=== PATIENT | female | born 1995 | race Caucasian/White ===

== ENCOUNTER → 2020-07-23 15:01 | Outpatient (CLI) | payer OTHER, SELFPAY ==
[2020-07-23 15:57] LABS: Add Manual Diff / Slide Review NO; Basophils Absolute Auto 100 /uL (0-100); Basophils Percent Auto 1.1 % (0-2); Eosinophils Absolute Auto 100 /uL (0-450); Eosinophils Percent Auto 1.8 % (2-4); Hematocrit 42.8 % (36-46); Hemoglobin 14.7 g/dL (12.0-16.0); Lymphocytes Absolute Auto 2100 /uL (1100-4500); Lymphocytes Percent Auto 36.9 % (25-40); Mean Corpuscular HGB Conc 34.3 % (30-36); Mean Corpuscular Hemoglobin 32.1 PG (26-34); Mean Corpuscular Volume 93.4 fL (80-100); Monocytes Absolute Auto 500 /uL (0-900); Monocytes Percent Auto 8.3 % (3-14); Neutrophils Absolute Auto 3000 /uL (1500-7000); Neutrophils Percent Auto 51.9 % (50-75); Platelet Count 223 X10^3/uL (150-400); Red Blood Cell Count 4.58 X10^6/uL (4.0-5.2); Red Cell Distribution Width 12.6 % (11.6-14.8); White Blood Cell Count 5.7 X10^3/uL (4.5-11.0)
[2020-07-23 16:48] LABS: Alanine Aminotransferase 31 IU/L (<35); Albumin 4.7 g/dL (3.5-5.0); Albumin Globulin Ratio 1.6 (1.0-2.8); Alkaline Phosphatase 51 U/L (38-126); Aspartate Aminotransferase 43 IU/L (14-36); BUN Creatinine Ratio 21.9 (6-22); Bilirubin Total 0.4 mg/dL (0.2-1.3); Blood Urea Nitrogen 16 mg/dL (7-17); Calcium 9.5 mg/dL (8.4-10.2); Carbon Dioxide 31 mmol/L (22-32); Chloride 100 mmol/L (98-107); Estimated Glomerular Filt Rate > 60.0 mL/min (>60); Glucose 88 mg/dL (70-100); HEMOLYSIS < 15 (0-50); Potassium 4.3 mmol/L (3.4-5.1); Sodium 139 mmol/L (137-145); Total Protein 7.7 g/dL (6.3-8.2)
[2020-07-23 17:15] LABS: TSH w/ Reflex to FT4 2.56 uIU/mL (0.47-4.68)
== END ==
PROVIDERS: PCP Family Medicine; Referring Provider Family Medicine; Visit Provider Family Medicine
DX: Z83.3 Family history of diabetes mellitus (principal); Z83.49 Family history of other endocrine, nutritional and metabolic diseases
CPT/HCPCS: 36415; 80053; 84443; 85025

== ENCOUNTER → 2020-08-21 08:53 | Outpatient (CLI) | payer OTHER, SELFPAY ==
[2020-08-21 10:07] LABS: Albumin 4.7 g/dL (3.5-5.0); HEMOLYSIS < 15 (0-50)
[2020-08-21 10:08] LABS: Alanine Aminotransferase 25 IU/L (<35); Albumin Globulin Ratio 1.6 (1.0-2.8); Alkaline Phosphatase 59 U/L (38-126); Aspartate Aminotransferase 31 IU/L (14-36); BUN Creatinine Ratio 20.5 (6-22); Bilirubin Total 0.6 mg/dL (0.2-1.3); Blood Urea Nitrogen 15 mg/dL (7-17); Calcium 9.6 mg/dL (8.4-10.2); Carbon Dioxide 31 mmol/L (22-32); Chloride 100 mmol/L (98-107); Estimated Glomerular Filt Rate > 60.0 mL/min (>60); Glucose 58 mg/dL (70-100); Potassium 4.2 mmol/L (3.4-5.1); Sodium 138 mmol/L (137-145); Total Protein 7.7 g/dL (6.3-8.2)
[2020-08-21 10:36] LABS: TSH w/ Reflex to FT4 2.99 uIU/mL (0.47-4.68)
== END ==
PROVIDERS: PCP Family Medicine; Referring Provider Family Medicine; Visit Provider Family Medicine
DX: R74.02 Elevation of levels of lactic acid dehydrogenase [LDH] (principal)
CPT/HCPCS: 36415; 80053; 84443

== ENCOUNTER → 2020-09-28 10:06 | Outpatient (CLI) | payer OTHER, SELFPAY ==
[2020-09-28 12:41] LABS: TSH w/ Reflex to FT4 2.63 uIU/mL (0.47-4.68)
[2020-10-02 14:20] LABS: Free T4, Direct Thyroxine 1.49 ng/dL (0.78-2.19)
== END ==
PROVIDERS: Obstetrics & Gynecology; PCP Family Medicine; Referring Provider Family Medicine; Visit Provider Family Medicine
DX: E03.9 Hypothyroidism, unspecified (principal)
CPT/HCPCS: 36415; 84439; 84443

== ENCOUNTER → 2020-10-26 09:31 | Outpatient (CLI) | payer OTHER, SELFPAY ==
[2020-10-26 10:55] LABS: Free T4, Direct Thyroxine 1.59 ng/dL (0.78-2.19)
[2020-10-26 11:09] LABS: Thyroid Stimulating Hormone 0.126 uIU/mL (0.47-4.68)
== END ==
PROVIDERS: PCP Family Medicine; Referring Provider Obstetrics & Gynecology; Visit Provider Obstetrics & Gynecology
DX: E03.9 Hypothyroidism, unspecified (principal)
CPT/HCPCS: 36415; 84439; 84443

== ENCOUNTER → 2020-11-06 14:46 | Outpatient (CLI) | payer OTHER, SELFPAY ==
--- NOTE | 2020-11-06 14:47 | DI.US.S_ITS ---
PROCEDURE: US THYROID INDICATIONS: hypothyroid TECHNIQUE: Real-time scanning was performed of the thyroid gland, with image documentation. COMPARISON: None. FINDINGS: Right: Thyroid lobe measures 5.7 x 1.1 x 1.5 cm, and is homogeneous in echotexture. Left: Thyroid lobe measures 5.0 x 0.8 x 1.4 cm, and is homogenous in echotexture. Isthmus: 3 mm thick. Nodule number: 1 Location: Right interpolar region Size: 2 x 1 x 2 mm. Composition: Cystic Echogenicity: Anechoic Shape: wider than tall. Margins: Smooth Echogenic foci: Punctate Total points: 3 ACR TI-RADS category: Mildly suspicious Nodule number: 2 Location: Right inferior pole Size: 2 x 1 x 2 mm. Composition: Cystic Echogenicity: Anechoic Shape: Smooth Margins: Punctate Echogenic foci: 3 Total points: 3 ACR TI-RADS category: Mildly suspicious Nodule number: 3 Location: Left upper pole Size: 3 x 1 x 2 mm. Composition: Cystic Echogenicity: Anechoic Shape: wider than tall. Margins: Smooth Echogenic foci: Punctate Total points: 3 ACR TI-RADS category: Mildly suspicious Nodule number: 4 Location: Left interpolar lobe Size: 5 x 3 x 4 mm. Composition: Cystic Echogenicity: Anechoic Shape: wider than tall. Margins: Smooth Echogenic foci: Punctate Total points: 3 ACR TI-RADS category: Mildly suspicious IMPRESSION: Bilateral sub 5 mm thyroid cysts, no further follow-up is necessary by consensus guidelines below. ACR TI-RADS definitions and recommendations: TI-RADS 1 (benign): 0 points. FNA not needed. TI-RADS 2 (not suspicious): 2 points. FNA not needed. TI-RADS 3 (mildly suspicious): 3 points. * FNA if 2.5 cm or larger, follow up if 1.5 cm or larger (at 1, 3, and 5 years). TI-RADS 4 (moderately suspicious): 4-6 points. * FNA if 1.5 cm or larger, follow up if 1 cm or larger (at 1, 2, 3, and 5 years). TI-RADS 5 (highly suspicious): 7 points or more. * FNA if 1 cm or larger, follow up if 0.5 cm or larger (every year for 5 years). Dictated by: Eyal Briceno M.D. on 11/06/2020 at 17:39 Approved by: Eyal Briceno M.D. on 11/06/2020 at 17:42
== END ==
PROVIDERS: PCP Family Medicine; Referring Provider Family Medicine; Visit Provider Obstetrics & Gynecology
DX: E03.9 Hypothyroidism, unspecified (principal); E04.9 Nontoxic goiter, unspecified; Z83.49 Family history of other endocrine, nutritional and metabolic diseases
CPT/HCPCS: 76536

== ENCOUNTER → 2020-11-29 07:55 | Outpatient (CLI) | payer OTHER, SELFPAY ==
[2020-11-29] MEDS: COVID-19 VACC #1, MRNA(MOD) 100 MCG/0.5 ML VIAL IM (08:02)
== END ==
PROVIDERS: PCP Family Medicine; Visit Provider Internal Medicine
DX: Z23 Encounter for immunization (principal)
CPT/HCPCS: 0011A; 91301

== ENCOUNTER → 2020-12-27 08:03 | Outpatient (CLI) | payer OTHER, SELFPAY ==
[2020-12-27] MEDS: COVID-19 VACC #2, MRNA(MOD) 100 MCG/0.5 ML VIAL IM (08:06)
== END ==
PROVIDERS: PCP Family Medicine; Visit Provider Internal Medicine
DX: Z23 Encounter for immunization (principal)
CPT/HCPCS: 0012A; 91301

== ENCOUNTER → 2021-01-31 12:48 | Outpatient (CLI) | payer OTHER, SELFPAY | PROVIDERS: PCP Family Medicine; Referring Provider Obstetrics & Gynecology; Visit Provider Obstetrics & Gynecology | DX: Z32.01 Encounter for pregnancy test, result positive (principal) | CPT/HCPCS: 36415; 84702 ==

== ENCOUNTER → 2021-02-03 08:06 | Outpatient (CLI) | payer OTHER, SELFPAY ==
[2021-02-03 09:35] LABS: HCG Quantitative /Beta subunit 537.6 mIU/mL
== END ==
PROVIDERS: PCP Family Medicine; Referring Provider Obstetrics & Gynecology; Visit Provider Obstetrics & Gynecology
DX: Z34.90 Encounter for supervision of normal pregnancy, unspecified, unspecified trimester (principal)
CPT/HCPCS: 36415; 84702

== ENCOUNTER → 2021-02-12 12:06 | Outpatient (CLI) | payer OTHER, SELFPAY ==
[2021-02-12 13:05] LABS: Add Manual Diff / Slide Review NO; Basophils Absolute Auto 100 /uL (0-100); Basophils Percent Auto 0.9 % (0-2); Eosinophils Absolute Auto 100 /uL (0-450); Hematocrit 42.1 % (36-46); Hemoglobin 14.7 g/dL (12.0-16.0); Lymphocytes Absolute Auto 2300 /uL (1100-4500); Lymphocytes Percent Auto 32.6 % (25-40); Mean Corpuscular HGB Conc 34.9 % (30-36); Mean Corpuscular Volume 91.5 fL (80-100); Monocytes Absolute Auto 600 /uL (0-900); Monocytes Percent Auto 8.6 % (3-14); Neutrophils Absolute Auto 3900 /uL (1500-7000); Neutrophils Percent Auto 55.9 % (50-75); Platelet Count 220 X10^3/uL (150-400); Red Cell Distribution Width 12.7 % (11.6-14.8); White Blood Cell Count 7.1 X10^3/uL (4.5-11.0)
[2021-02-12 16:05] LABS: HIV 1 & 2 Ab/Ag 4th Gen Combo NEGATIVE (NEGATIVE); Hep C Virus Ab w/Reflex Quant NEGATIVE s/c (NEGATIVE); Hepatitis B Surface Antigen NEGATIVE s/c (NEGATIVE); Rubella Antibody IgG 88.9 IU/mL (>15)
[2021-02-12 16:17] LABS: Free T4, Direct Thyroxine 1.45 ng/dL (0.78-2.19)
[2021-02-12 16:28] LABS: Appearance Urine UA SL CLOUDY; Bilirubin Urine UA NEGATIVE (NEGATIVE); Color Urine UA YELLOW; Glucose Urine UA NEGATIVE (Negative); Ketones Urine UA NEGATIVE (NEGATIVE); Leukocyte Esterase Urine UA 2+ (NEGATIVE); Nitrite Urine UA NEGATIVE (Negative); Occult Blood Urine UA NEGATIVE (Negative); Protein Urine UA NEGATIVE (Negative); Urobilinogen Urine UA 0.2 E.U./dL (0.2)
[2021-02-12 16:32] LABS: Thyroid Stimulating Hormone 0.059 uIU/mL (0.47-4.68)
[2021-02-12 16:51] LABS: RBC Urine None Seen (0-5/HPF)
[2021-02-12 16:56] LABS: Amorphous Sediment Urine 1+; Bacteria Urine Moderate (10-30); Squamous Epithelial Cell Urine 5-10 /HPF (0-5/HPF); WBC Urine 5-10/HPF (0-5/HPF)
[2021-02-13 07:56] LABS: RPR Screen Non Reactive (Non Reactive)
[2021-02-13 11:19] LABS: Varicella IgG Antibody >4000 index (Immune >165)
== END ==
PROVIDERS: PCP Family Medicine; Referring Provider Obstetrics & Gynecology; Visit Provider Obstetrics & Gynecology
DX: Z34.81 Encounter for supervision of other normal pregnancy, first trimester (principal)
CPT/HCPCS: 36415; 80055; 81003; 81015; 84439; 84443; 86787; 86803; 86850; 86900; 86901; 87086; 87389

== ENCOUNTER → 2021-03-26 12:56 | Outpatient (CLI) | payer OTHER, SELFPAY ==
[2021-03-26 15:40] LABS: Free T4, Direct Thyroxine 1.14 ng/dL (0.78-2.19)
[2021-03-26 15:54] LABS: Thyroid Stimulating Hormone 0.705 uIU/mL (0.47-4.68)
== END ==
PROVIDERS: PCP Family Medicine; Referring Provider Obstetrics & Gynecology; Visit Provider Obstetrics & Gynecology
DX: E03.9 Hypothyroidism, unspecified (principal); Z34.90 Encounter for supervision of normal pregnancy, unspecified, unspecified trimester
CPT/HCPCS: 36415; 84439; 84443

== ENCOUNTER → 2021-04-08 14:15 | Outpatient (CLI) | payer OTHER, SELFPAY ==
[2021-04-08 21:51] LABS: Urine N gonorrhoeae NOT DETECTED
[2021-04-08 22:19] LABS: Urine Chlamydia NOT DETECTED
== END ==
PROVIDERS: PCP Family Medicine; Visit Provider Obstetrics & Gynecology
DX: Z34.82 Encounter for supervision of other normal pregnancy, second trimester (principal); Z3A.13 13 weeks gestation of pregnancy
CPT/HCPCS: 87491; 87591

== ENCOUNTER → 2021-04-29 15:33 | Outpatient (CLI) | payer OTHER, SELFPAY ==
[2021-04-29 17:01] LABS: Free T4, Direct Thyroxine 1.02 ng/dL (0.78-2.19)
[2021-04-29 17:15] LABS: Thyroid Stimulating Hormone 1.56 uIU/mL (0.47-4.68)
[2021-05-01 20:36] LABS: Estriol, Free 1.21 ng/mL (.); Inhibin A, Dimeric 96.33 pg/mL (.); Inhibin A, MoM 0.61 (.); Maternal Ethnicity Caucasian (.); Maternal Weight 146 lbs (.); Number of Fetuses No (.); OSBR Risk 1 IN 10000 (.); Results Report (.); Test Results *Screen Negative* (.); hCG, MoM 0.68 (.); hCG, Serum 24136 mIU/mL (.)
== END ==
PROVIDERS: PCP Family Medicine; Referring Provider Obstetrics & Gynecology; Visit Provider Obstetrics & Gynecology
DX: Z34.82 Encounter for supervision of other normal pregnancy, second trimester (principal); Z3A.16 16 weeks gestation of pregnancy
CPT/HCPCS: 36415; 82105; 82677; 84439; 84443; 84702; 86336

== ENCOUNTER → 2021-05-26 12:56 | Outpatient (CLI) | payer OTHER, SELFPAY ==
--- NOTE | 2021-05-26 12:57 | DI.US.S_ITS ---
PROCEDURE: US OB >= 14 WEEKS FETUS INDICATIONS: ANATOMY OUTSIDE/PRIOR DATING DATA: Last menstrual period (LMP): 01/02/2021. LMP-based estimated date of delivery (SEVERO): - . First dating scan (date and location): 03/10/2021 . Estimated date of delivery (SEVERO) from first dating scan: 10/09/2021 . TECHNIQUE: Real-time scanning was performed of the fetus, with image documentation and biometric measurements. Endovaginal scanning: No COMPARISON: [facility], , OB >= 14 WEEKS FETUS, 04/29/2021, 15:29. FINDINGS: General: A single living intrauterine gestation is present. Presentation: Reach. Placenta: Placental position is left posterior , without previa. Amniotic fluid index: 15.2 cm, normal range is 5-24 cm. heart rate: 143 beats per minute. Maternal cervical canal: 5.2 cm long. Normal lower limit is 2.5 cm. biometrics: Biparietal diameter: 20 weeks 1 day Head circumference: 20 weeks 1 day Abdominal circumference: 21 weeks 5 days Femur length: 19 weeks 4 days Estimated gestational age from initial scan: 20 weeks 4 days Composite gestational age from present scan: 20 weeks 3 days Estimated weight and percentile: 360 g; 58th percentile Measurement variability for biometric dating: +/- 7 days from 14 weeks to 15 weeks 6 days gestation, +/- 10 days from 16 weeks to 21 weeks 6 days gestation, +/- 2 weeks from 22 weeks to 27 weeks 6 days gestation, +/- 3 weeks for 28 weeks gestation or later. weight reference: 4500 g or EFW >90/95% is considered macrosomia or large for gestational age. EFW <10% is small for gestational age. EFW 5% or less is considered intra-uterine growth restriction. Anatomic survey: Neuro: Ventricles are non-dilated at less than 10 mm. Cisterna magna is normal at 3-11 mm. Cerebellum is normal in size and morphology. Nuchal skin fold: Normal at less than 6 mm between 14-21 weeks gestational age. Face: Nose and lips, facial profile are normal. Spine: No evidence for spina bifida. Heart: 4-chambered heart is present, with normal ventricular outflow tracts. Mildly prominent chordae tendineae. Diaphragm: Diaphragm is intact. Stomach: Left-sided stomach is present. Kidneys: No hydronephrosis. Normal is less than 5 mm in 2nd trimester, less than 7 mm in 3rd trimester. Cord: 3-vessel cord has orthotopic insertion. Bladder: Normal in size. Extremities: All 4 extremities identified. IMPRESSION: 1. Normal interval growth. 2. Normal anatomic survey. Dictated by: Fernando MORRIS Interpreted: Erwin Merchant MD on 05/26/2021 at 15:01 Transcribed by: SETH on 05/26/2021 at 15:03 Approved by: Erwin Merchant M.D. on 05/26/2021 at 17:16
--- NOTE | 2021-05-26 12:57 | DI.US.S_ITS ---
PROCEDURE: US THYROID INDICATIONS: THYROID NODULES TECHNIQUE: Real-time scanning was performed of the thyroid gland, with image documentation. COMPARISON: [facility], US, US THYROID, 11/06/2020, 15:06. FINDINGS: Right: Thyroid lobe measures 5.6 x 1.4 x 1.0 cm, and is homogeneous in echotexture. Subcentimeter colloid cyst. Left: Thyroid lobe measures 5.6 x 1.4 x 0.8 cm, and is homogenous in echotexture. Isthmus: 1.9 mm thick. IMPRESSION: Subcentimeter right colloid cyst redemonstrated. Dictated by: Fernando Proctor [facility] Interpreted: Erwin Merchant MD on 05/26/2021 at 14:57 Transcribed by: SETH on 05/26/2021 at 15:00 Approved by: Erwin Merchant M.D. on 05/26/2021 at 15:02
== END ==
PROVIDERS: PCP Family Medicine; Referring Provider Specialist; Visit Provider Specialist
DX: Z36.89 Encounter for other specified antenatal screening (principal); Z3A.20 20 weeks gestation of pregnancy; O99.282 Endocrine, nutritional and metabolic diseases complicating pregnancy, second trimester; E04.1 Nontoxic single thyroid nodule
CPT/HCPCS: 76536; 76811

== ENCOUNTER → 2021-05-29 13:34 | Outpatient (CLI) | payer OTHER, SELFPAY ==
[2021-05-29 15:05] LABS: Free T4, Direct Thyroxine 1.18 ng/dL (0.78-2.19)
[2021-05-29 15:19] LABS: Thyroid Stimulating Hormone 0.218 uIU/mL (0.47-4.68)
== END ==
PROVIDERS: PCP Family Medicine; Referring Provider Obstetrics & Gynecology; Visit Provider Obstetrics & Gynecology
DX: E03.9 Hypothyroidism, unspecified (principal); Z34.90 Encounter for supervision of normal pregnancy, unspecified, unspecified trimester; Z34.82 Encounter for supervision of other normal pregnancy, second trimester
CPT/HCPCS: 36415; 84439; 84443; 86850; 86900; 86901

== ENCOUNTER → 2021-06-24 16:37 | Outpatient (CLI) | payer OTHER, SELFPAY ==
[2021-06-24 18:04] LABS: Hematocrit 36.5 % (36-46); Hemoglobin 12.6 g/dL (12.0-16.0)
[2021-06-24 18:18] LABS: GTT (PREG) 1 Hour PP 50gm Dose 125 mg/dL (76-139)
== END ==
PROVIDERS: PCP Family Medicine; Referring Provider Obstetrics & Gynecology; Visit Provider Obstetrics & Gynecology
DX: Z34.82 Encounter for supervision of other normal pregnancy, second trimester (principal); Z3A.26 26 weeks gestation of pregnancy
CPT/HCPCS: 36415; 82950; 85014; 85018; 86850

== ENCOUNTER → 2021-07-01 08:55 | Outpatient (CLI) | payer OTHER, SELFPAY ==
[2021-07-01 09:30] LABS: COVID19 -Nasal RAPID Negative (Negative)
== END ==
PROVIDERS: PCP Family Medicine; Referring Provider Physician Assistant; Visit Provider Physician Assistant
DX: Z20.822 Contact with and (suspected) exposure to COVID-19 (principal); J02.9 Acute pharyngitis, unspecified; R09.81 Nasal congestion; R51.9 Headache, unspecified
CPT/HCPCS: 87070; 87635

== ENCOUNTER → 2021-07-25 13:32 | Outpatient (CLI) | payer OTHER, SELFPAY ==
[2021-07-25 16:06] LABS: Free T4, Direct Thyroxine 1.18 ng/dL (0.78-2.19)
[2021-07-25 16:20] LABS: Thyroid Stimulating Hormone 0.477 uIU/mL (0.47-4.68)
== END ==
PROVIDERS: PCP Family Medicine; Referring Provider Obstetrics & Gynecology; Visit Provider Obstetrics & Gynecology
DX: E03.9 Hypothyroidism, unspecified (principal); Z34.90 Encounter for supervision of normal pregnancy, unspecified, unspecified trimester
CPT/HCPCS: 36415; 84439; 84443

== ENCOUNTER → 2021-08-20 | Outpatient (CLI) | payer OTHER, SELFPAY | PROVIDERS: PCP Family Medicine; Referring Provider Internal Medicine; Visit Provider Internal Medicine | DX: Z23 Encounter for immunization (principal) | CPT/HCPCS: 90471; 90686 ==

== ENCOUNTER → 2021-09-03 10:26 | Outpatient (CLI) | payer OTHER, SELFPAY ==
[2021-09-03 12:45] LABS: Thyroid Stimulating Hormone 1.39 uIU/mL (0.47-4.68)
== END ==
PROVIDERS: PCP Family Medicine; Referring Provider Obstetrics & Gynecology; Visit Provider Obstetrics & Gynecology
DX: E03.9 Hypothyroidism, unspecified (principal)
CPT/HCPCS: 36415; 84439; 84443

== ENCOUNTER → 2021-09-18 14:20 | Outpatient (CLI) | payer OTHER, SELFPAY ==
[2021-09-19 19:35] LABS: Strep Grp B PCR NEG for Grp B Strep
== END ==
PROVIDERS: PCP Family Medicine; Referring Provider Obstetrics & Gynecology; Visit Provider Obstetrics & Gynecology
DX: Z34.83 Encounter for supervision of other normal pregnancy, third trimester (principal); Z3A.37 37 weeks gestation of pregnancy
CPT/HCPCS: 87653

== ENCOUNTER 2021-10-10 01:43 | Outpatient (CLI) | payer OTHER, SELFPAY ==
[2021-10-10] MEDS: hydrOXYzine 50 MG/ML INJ IM (03:17)
[2021-10-10] MEDS: MORPHINE 10 MG/ML INJ IM (03:18)
--- NOTE | 2021-10-10 18:39 | PM.OBTRLD ---
Visit Information Visit Information Date of evaluation: 10/10/21 Primary OB Provider: Yissel Brower On-call OB Provider: Do Li Reason for Evaluation: Yes rule out labor Comments/Additional reasons for admission: Patient with increasing frequency and intensity of contractions. Vital Signs Vital Signs: 127/77, VSS PFSH Medical History Concussion Depression Dysmenorrhea Family history of diabetes mellitus Family history of hypothyroidism Hematoma of perineum in female (~04/2018) Hyperlipidemia depression (spontaneous vaginal delivery) (~05/05/18) Surgical History History of third molar tooth extraction Lymph node abscess (~1994) Family History Father Hypertension Heart disease Chronic a-fib Hyperlipidemia Nervously anxious Mother Hypothyroidism Ovarian cyst Brother Healthy adult Grandfather Cancer Lung cancer Alcohol addiction Heavy smoker Grandmother Cancer Lung cancer Breast cancer Heavy smoker Alcohol addiction Grandfather Heart disease Hyperlipidemia Hypertension Atrial fibrillation H/O heart bypass surgery Grandmother Osteoporosis Arthritis Sister Infertility Hypothyroidism Type 1 diabetes Gestational diabetes Migraine PCOS (polycystic ovarian syndrome) Family/Other Hypoplastic left heart Social History marital status: number of children: 1 household members: spouse and children lives independently: Yes pets and animals: No education level: college 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 suzy/christianity: Roman Catholic special suzy needs: No Smoking Status: Never smoker second hand exposure: No alcohol intake: former (pre- : rare/occasional) substance use type: does not use Evaluation Evaluation Baseline heart rate: 125 Variability: Moderate (11-25) monitor accelerations: Present Monitor Decelerations: Early (sporadic) Contraction Frequency (minutes): 3 Category of Tracing: Reactive Status: Category l Cervical dilation (cm): 2 Cervical effacement (%): 80 station: 0 Diagnosis, Plan/Disposition Plan/Disposition Plan: Home with scheduled precautions- offered ambulation and re exam. OB Disposition: home
== END 2021-10-10 03:28 | disposition home or self-care (01) ==
LOC: OB 10-13 11:14
PROVIDERS: PCP Family Medicine; Referring Provider Obstetrics & Gynecology; Visit Provider Obstetrics & Gynecology
DX: O48.0 Post-term pregnancy (principal); Z3A.40 40 weeks gestation of pregnancy
CPT/HCPCS: 59025; 96372; G0378; G0379; J2270; J3410

== ENCOUNTER 2021-10-10 19:46 | Inpatient (IN) | payer OTHER, SELFPAY ==
[2021-10-10 21:26] VITALS: BP 123/77
[2021-10-10 21:26] LABS: Add Manual Diff / Slide Review NO; Basophils Absolute Auto 0 /uL (0-100); Basophils Percent Auto 0.5 % (0-2); Eosinophils Absolute Auto 100 /uL (0-450); Eosinophils Percent Auto 1.3 % (2-4); Hematocrit 30.5 % (36-46); Hemoglobin 10.7 g/dL (12.0-16.0); Lymphocytes Absolute Auto 1500 /uL (1100-4500); Lymphocytes Percent Auto 25.7 % (25-40); Mean Corpuscular Hemoglobin 30.9 PG (26-34); Mean Corpuscular Volume 88.3 fL (80-100); Monocytes Absolute Auto 800 /uL (0-900); Monocytes Percent Auto 13.1 % (3-14); Neutrophils Absolute Auto 3500 /uL (1500-7000); Neutrophils Percent Auto 59.4 % (50-75); Platelet Count 170 X10^3/uL (150-400); Red Blood Cell Count 3.45 X10^6/uL (4.0-5.2); Red Cell Distribution Width 14.1 % (11.6-14.8)
[2021-10-10 21:35] LABS: COVID19 -Nasal RAPID Negative (Negative)
--- NOTE | 2021-10-10 22:54 | PM.OBHP.IH.1 ---
OB HPI Date/Time Date of admission: 10/10/21 Date Patient Seen: 10/10/21 Time Patient Seen: 22:56 History of Present Condition Chief complaint: SEVERO Calculator Estimated Delivery Date Method Current WG Current Estimate 10/09/21 LMP (Certain) 40w 1d Other Estimates 10/09/21 Ultrasound #1 40w 1d Estimated Gestational Age (weeks): 40w1d : 2 Para: 1 Narrative: 26yo at 40w1d who presented with regular painful contractions. Pt with contractions throughout the day, increasing in frequency and intensity this evening. No LOF or vaginal bleeding. She is feeling her baby move regularly. Her was complicated by hypothyroidism on Levothyroxine. care: good care, initiated at week # (8) and pounds weight gain (40) Dating criteria OB: LMP confirmed by 1st trimester US Ultrasounds: normal 1st trimester US and normal mid trimester US Obstetrical complications: none Medical complications OB: other (hypothyroidism) Preadmission Labs Last OB Lab Results: Blood Type A Negative 10/10/21 21:00 10/10/21 Antibody Screen Negative 10/10/21 21:00 10/10/21 Hematocrit 30.5 % (36-46) L 10/10/21 21:00 10/10/21 Hemoglobin 10.7 g/dL (12.0-16.0) L 10/10/21 21:00 10/10/21 Hepatitis B Surface Antigen Negative s/c (NEGATIVE) 02/12/21 12:22 02/12/21 Hepatitis C Antibody Negative s/c (NEGATIVE) 02/12/21 12:22 02/12/21 Rubella Antibody 88.9 IU/mL (>15) 02/12/21 12:22 02/12/21 Varicella-Zoster IgG Antibody >4000 index (Immune >165) 02/12/21 12:22 02/12/21 Glucose 1 Hour 125 mg/dL (76-139) 06/24/21 17:50 06/24/21 Group B Streptococcus (PCR) Neg for grp b strep 09/18/21 14:20 09/18/21 -: Chlamydia screen: negative, Gonorrhea screen: negative and Urine: negative -: PAP smear: Normal Genetic Screens: Quad screen: Normal External Labs -: Urine: negative Prior (ies) Past Pregnancies Del. Date GA/Weeks Labor Lgth Wt Sex Route Outcome Anesthesia Place Delv Breastfeed Preg Comp Name 05/05/18 40.5 15 8 lb 9 oz Male vaginal live - full term epidural [place] ([place]) 14 months : tongue-tied ian Sanchez Delivery Date: 05/05/18 Last Updated by: Leonela Fontana R.N. *Slow leak PROM : ? 48-72 hours prior to delivery. *Pitocin-enhanced labor. *Tear with repair : hematoma developed PP. *PPD diagnosed 3-4 weeks PP : no Rx but had Therapy. Evaluation Evaluation Baseline heart rate: 140 Variability: Moderate (11-25) monitor accelerations: Present Monitor Decelerations: Absent Contraction Frequency (minutes): 2 Status: Category l Dilation (cm): 9.5 Effacement (%): 100 station: 0 Comments: After informed consent, AROM performed with production of clear fluid. [facility] Medical History Concussion Depression Dysmenorrhea Family history of diabetes mellitus Family history of hypothyroidism Hematoma of perineum in female (~04/2018) Hyperlipidemia depression (spontaneous vaginal delivery) (~05/05/18) Surgical History History of third molar tooth extraction Lymph node abscess (~1994) Family History Father Hypertension Heart disease Chronic a-fib Hyperlipidemia Nervously anxious Mother Hypothyroidism Ovarian cyst Brother Healthy adult Grandfather Cancer Lung cancer Alcohol addiction Heavy smoker Grandmother Cancer Lung cancer Breast cancer Heavy smoker Alcohol addiction Grandfather Heart disease Hyperlipidemia Hypertension Atrial fibrillation H/O heart bypass surgery Grandmother Osteoporosis Arthritis Sister Infertility Hypothyroidism Type 1 diabetes Gestational diabetes Migraine PCOS (polycystic ovarian syndrome) Family/Other Hypoplastic left heart Social History marital status: number of children: 1 household members: spouse and children lives independently: Yes pets and animals: No education level: college 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 suzy/gnosticism: Yazdanism special suzy needs: No Smoking Status: Never smoker second hand exposure: No alcohol intake: former (pre- : rare/occasional) substance use type: does not use Meds Home Medications and Allergies Home Medications Medication Instructions Recorded Confirmed Type prenat.vits,chana,rri-xyhr-nxoqn 1 tab PO DAILY 11/20/20 10/10/21 History Double Electric Breast Pump #1 ea 07/07/21 10/10/21 Rx levothyroxine 150 mcg tablet See Rx Instructions .ROUTE 09/29/21 10/10/21 Rx .COMPLEX #30 tab Allergies Allergy/AdvReac Type Severity Reaction Status Date / Time Penicillins AdvReac Intermediate Unknown - Verified 10/08/21 15:24 since she was a baby OB Exam Narrative Exam Narrative: Gen: uncomfortable with contractions, laying in bed CV: RRR, no murmurs Resp: clear to auscultation bilaterally Abd: soft, nontender, gravid Ext: no edema Objective Labs Result Diagrams: 10/10/21 21:00 Labs: Laboratory Results - last 24 hr 10/10/21 10/10/21 10/10/21 20:45 21:00 21:00 WBC 6.0 RBC 3.45 L Hgb 10.7 L Hct 30.5 L MCV 88.3 MCH 30.9 MCHC 35.0 RDW 14.1 Plt Count 170 Neut % (Auto) 59.4 Lymph % (Auto) 25.7 Bates % (Auto) 13.1 Eos % (Auto) 1.3 L Baso % (Auto) 0.5 Neut # (Auto) 3500 Lymph # (Auto) 1500 Bates # (Auto) 800 Eos # (Auto) 100 Baso # (Auto) 0 SARS-CoV-2 (PCR) Negative Blood Type A Negative Antibody Screen Negative Assessment and Plan Assessment and Plan Assessment and Plan narrative: 26yo at 40w1d here in active labor. GBS negative, Rh negative. complicated by hypothyroidism on Levothyroxine. AROM with clear fluid. - Expectant management, anticipate - FHT reassuring - GBS negative, no prophylaxis indicated - Desires natural methods for pain control
--- NOTE | 2021-10-11 00:32 | PM.OBPRVD ---
Labor & Delivery Delivery date: 10/11/21 Intrapartal Events: None Cervical ripening method: none Induction method: none Delivery augmentation: rupture of membranes Delivery monitor: external FHT Route of delivery: Episiotomy description: None L&D Laceration Description: Perineal - 2nd Degree Delivery repair: chromic Estimated blood loss (mL): 100 Anesthesia Type: None Complications: None Narrative: PROCEDURE: at 40w1d presented in active labor and was admitted to Labor and Delivery. The patient progressed through the 1st stage over 5.5 hours. Pain was controlled with natural methods. AROM was performed with production of clear fluid. The patient progressed through the 2nd stage over 1 hour and delivered a viable female with APGARs 9/9 at 00:03 via without complications. The cord was clamped and cut after it stopped pulsating. The perineum and vagina were inspected with 2nd degree perineal laceration repaired with 3-O Chromic in the usual fashion. PREPROCEDURE DIAGNOSIS: Intrauterine at 40w2d Hypothyroidism GBS negative RH negative POSTPROCEDURE DIAGNOSIS: Intrauterine at 40w2d, delivered Same as preprocedure [place] Baby 1: Infant gender: Female Presentation: vertex Position: Right Occiput Anterior Placenta delivery description: Spontaneous Cord Vessel Description: 3 Vessels score (1 min): 9 score (5 min): 9 weight: 8 lb 12.602 oz Plan for aftercare: Routine care (send cord blood to confirm Rh status)
[2021-10-11] MEDS: ACETAMINOPHEN 325 MG TABLET 650 MG PO ×4 (01:14→19:43)
[2021-10-11] MEDS: IBUPROFEN 600 MG TABLET PO ×4 (01:14→19:44)
[2021-10-11] MEDS: LEVOTHYROXINE 150 MCG TABLET PO (07:19)
[2021-10-11] MEDS: DOCUSATE 100 MG CAPSULE PO (09:00)
[2021-10-11] MEDS: FERROUS SULFATE 325 MG TABLET PO (09:00)
[2021-10-11] MEDS: PRENATAL VIT,CALC/IRON/FOLIC 1 TABLET 1 TAB PO (09:00)
--- NOTE | 2021-10-11 10:17 | P.DS_ITS ---
Discharge Providers Provider Date of admission: 10/10/21 19:46 Discharge Date: 10/11/21 Primary care physician: Jeniffer Gilliam DO Consults: 10/12/21 00:31 Consult to [place] Caller Routine Comment: Discharge provider: Valentina Wang MD Summary Hospital Course Date Patient Seen: 10/11/21 Time Patient Seen: 09:30 Diagnoses: 40w2d gestation Rh negative GBS negative Hypothyroidism Spontaneous vaginal delivery Hospital Course: The pt presented in active labor. She progressed to complete using natural methods for pain control, and had a spontaneous vaginal delivery of a viable baby girl on 10/11/21. A small 2nd degree perineal laceration was then repaired. The pt tolerated delivery well. , there were no complications. At the time of discharge she was voiding, ambulating, and passing flatus without difficulty. Her lochia was decreasing appropriately. She was with good latch. Her pain as well controlled. She will f/u in clinic in 6 weeks for check. She plans on natural family planning for contraception. Peripartum Data Infant Delivery Method: Natural Vaginal Laceration Description: Perineal - 2nd Degree Episiotomy description: None Procedures: Spontaneous vaginal delivery complications: none 1: Gender: Female Disposition of : home Discharge Diagnosis (1) (spontaneous vaginal delivery): Status: Acute (2) Acquired hypothyroidism: Status: Acute Status at Discharge Cognitive/behavioral status at discharge: oriented Functional status at discharge: independent ambulation Overall status at discharge: patient is progressing back to baseline Time Spent with Patient Time attestation: Total time spent providing and/or coordinating discharge services: Objective Labs Result Diagrams: 10/10/21 21:00 Labs: Laboratory Results - last 24 hr 10/10/21 10/10/21 10/10/21 20:45 21:00 21:00 WBC 6.0 RBC 3.45 L Hgb 10.7 L Hct 30.5 L MCV 88.3 MCH 30.9 MCHC 35.0 RDW 14.1 Plt Count 170 Neut % (Auto) 59.4 Lymph % (Auto) 25.7 Porter % (Auto) 13.1 Eos % (Auto) 1.3 L Baso % (Auto) 0.5 Neut # (Auto) 3500 Lymph # (Auto) 1500 Porter # (Auto) 800 Eos # (Auto) 100 Baso # (Auto) 0 SARS-CoV-2 (PCR) Negative Blood Type A Negative Antibody Screen Negative Exam Narrative Exam Narrative: Gen: NAD, sitting comfortably in bed, appears well CV: RRR, no murmurs Resp: clear to auscultation bilaterally Abd: soft, appropriately tender, fundus firm and below the umbilicus, nondistended Ext: no edema Discharge Plan Discharge Plan Patient Disposition: Home Discharge orders & Medications Prescriptions: New acetaminophen 325 mg Tablet 650 mg PO Q6HR PRN (Reason: Pain, Mild (1-3)) Qty: 30 0RF ferrous sulfate 325 mg (65 mg iron) Tablet 325 mg PO DAILY Qty: 30 0RF docusate sodium 100 mg Capsule 100 mg PO DAILY Qty: 30 0RF ibuprofen 600 mg Tablet 600 mg PO Q6HR PRN (Reason: Pain, Mild (1-3)) Qty: 30 0RF Continued (DME) Double Electric Breast Pump See Rx Instructions .Route .MEDSUPPLY Qty: 1 0RF Rx Instructions: Double electric pump and supplies. SEVERO: 10/09/21. 27 weeks on 07/10/21 levothyroxine 150 mcg tablet See Rx Instructions .ROUTE .COMPLEX Qty: 30 2RF Dose Instruction: TAKE ONE TABLET BY MOUTH ONE TIME DAILY Rx Instructions: TAKE ONE TABLET BY MOUTH ONE TIME DAILY prenat.vits,hcana,ocs-qkxr-bfleq Tablet 1 tab PO DAILY 0RF Follow up/Referrals: Valentina Wang MD [Physician] - 6 Weeks Jeniffer Gilliam DO [Primary Care Provider] - Diet/Activity/Treatments Diet: Diet as Tolerated and Regular Skin/Wound/Dressing Care Report to your healthcare provider any signs of infection, such as:: chills, fever, increased pain and unusual drainage Visit Report/Discharge Packet Instructions: DI for Labor and Delivery, Vaginal Visit Report Forms: Patient Portal/API, Stroke Signs & Symptoms Discharge Data Primary Care Provider: Jeniffer Gilliam
[2021-10-12] MEDS: LEVOTHYROXINE 150 MCG TABLET PO (07:07)
[2021-10-12] MEDS: ACETAMINOPHEN 325 MG TABLET 650 MG PO (07:07)
[2021-10-12] MEDS: IBUPROFEN 600 MG TABLET PO (07:07)
[2021-10-12] MEDS: PRENATAL VIT,CALC/IRON/FOLIC 1 TABLET 1 TAB PO (09:26)
[2021-10-12] MEDS: FERROUS SULFATE 325 MG TABLET PO (09:26)
[2021-10-12] MEDS: DOCUSATE 100 MG CAPSULE PO (09:26)
[2021-10-12 10:00] VITALS: BP 123/77; PULSE 66; RESP 18; TEMP 36.7
--- NOTE | 2021-10-12 11:01 | PM.OBPN.1 ---
Subjective - OB Subjective Interval history: Pt is doing well. Did not discharge yesterday due to later discharge time for completion of baby's testing. She has no concerns today. Please see discharge note from yesterday for summary of hospital stay. Exam Vital Signs (past 8 hours): - 10/12/21 10:00 Temperature 98.1 F Pulse Rate 66 Respiratory Rate 18 Blood Pressure 123/77 Narrative Exam Narrative: Gen: NAD, sitting comfortably in bed, appears well CV: RRR, no murmurs Resp: clear to auscultation bilaterally Abd: soft, appropriately tender, fundus firm and below the umbilicus, nondistended Ext: no edema : perineum healing appropriately, no evidence of developing hematoma Objective Labs Result Diagrams: 10/10/21 21:00 Assessment & Plan Assessment and Plan (1) (spontaneous vaginal delivery): Status: Acute (2) Acquired hypothyroidism: Status: Acute Plan Comments: 26yo PPD #1 s/p without complications. Pt doing well. Stable for discharge home today. Discussed normal precautions after . Please see discharge note from yesterday for full hospital course. Time Spent With Patient Time: Total time spent is greater than 50% in coordination of care (as documented) at patient's floor/unit and/or counseling patient: Time with patient: 15-24 minutes
== END 2021-10-12 12:30 | disposition home or self-care (01) | DRG 807 ==
PROVIDERS: Admitting Provider Family Medicine; PCP Family Medicine; Referring Provider Family Medicine; Visit Provider Family Medicine
DX: O70.1 Second degree perineal laceration during delivery (principal); Z37.0 Single live birth; Z3A.40 40 weeks gestation of pregnancy; O99.284 Endocrine, nutritional and metabolic diseases complicating childbirth; E03.9 Hypothyroidism, unspecified; Z20.822 Contact with and (suspected) exposure to COVID-19
CPT/HCPCS: 36415; 59025; 59050; 59400; 59409; 85025; 86850; 86900; 86901; 87635; 96372; C9803; G0379; J2270; J3410

== ENCOUNTER → 2021-12-01 09:26 | Outpatient (CLI) | payer OTHER, SELFPAY ==
[2021-12-01 10:50] LABS: Free T3, Triiodothyronine Free 4.33 pg/mL (2.77-5.27); Free T4, Direct Thyroxine 1.91 ng/dL (0.78-2.19)
[2021-12-01 11:04] LABS: Thyroid Stimulating Hormone < 0.015 uIU/mL (0.47-4.68)
== END ==
PROVIDERS: PCP Family Medicine; Referring Provider Obstetrics & Gynecology; Visit Provider Obstetrics & Gynecology
DX: E03.9 Hypothyroidism, unspecified (principal)
CPT/HCPCS: 36415; 84439; 84443; 84481

== ENCOUNTER → 2022-03-16 09:24 | Outpatient (CLI) | payer OTHER, SELFPAY ==
[2022-03-16 10:41] LABS: Free T3, Triiodothyronine Free 3.45 pg/mL (2.77-5.27); Free T4, Direct Thyroxine 1.43 ng/dL (0.78-2.19)
[2022-03-16 10:55] LABS: Thyroid Stimulating Hormone 0.049 uIU/mL (0.47-4.68)
== END ==
PROVIDERS: PCP Family Medicine; Referring Provider Family Medicine; Visit Provider Family Medicine
DX: E03.9 Hypothyroidism, unspecified (principal)
CPT/HCPCS: 36415; 84439; 84443; 84481

== ENCOUNTER → 2022-06-29 15:00 | Outpatient (CLI) | payer OTHER, SELFPAY ==
[2022-06-29 16:41] LABS: Free T4, Direct Thyroxine 1.06 ng/dL (0.78-2.19)
[2022-06-29 16:54] LABS: Thyroid Stimulating Hormone 1.77 uIU/mL (0.47-4.68)
== END ==
PROVIDERS: PCP Family Medicine; Referring Provider Family Medicine; Visit Provider Family Medicine
DX: E03.9 Hypothyroidism, unspecified (principal)
CPT/HCPCS: 36415; 84439; 84443; 84481

== ENCOUNTER → 2022-11-04 10:14 | Outpatient (CLI) | payer OTHER, SELFPAY ==
--- NOTE | 2022-11-04 10:15 | DI.US.S_ITS ---
PROCEDURE: US THYROID INDICATIONS: FOLLOW UP CYST TECHNIQUE: Real-time scanning was performed of the thyroid gland, with image documentation. COMPARISON: , US, US THYROID, 05/26/2021, 13:06. FINDINGS: Right: Thyroid lobe measures 5.7 x 1.5 x 1.0 cm, and is homogeneous in echotexture. Left: Thyroid lobe measures 5.7 x 1.2 x 1.1 cm, and is homogenous in echotexture. Isthmus: 1.8 mm thick. Nodule number: 1 Location: Lower pole right thyroid lobe Size: 0.2 x 0.2 x 0.1 cm. Unchanged from previous study. Composition: Cystic Echogenicity: Anechoic Shape: Wider than tall Margins: Smooth Echogenic foci: None Total points: 0 ACR TI-RADS category: Benign. No new thyroid nodule is seen. No lymphadenopathy is seen in bilateral neck soft tissue. IMPRESSION: 1. Stable tiny colloid cyst in lower pole right thyroid lobe. No suspicious thyroid nodules. No neck soft tissue lymphadenopathy. ACR TI-RADS definitions and recommendations: TI-RADS 1 (benign): 0 points. FNA not needed. TI-RADS 2 (not suspicious): 2 points. FNA not needed. TI-RADS 3 (mildly suspicious): 3 points. * FNA if 2.5 cm or larger, follow up if 1.5 cm or larger (at 1, 3, and 5 years). TI-RADS 4 (moderately suspicious): 4-6 points. * FNA if 1.5 cm or larger, follow up if 1 cm or larger (at 1, 2, 3, and 5 years). TI-RADS 5 (highly suspicious): 7 points or more. * FNA if 1 cm or larger, follow up if 0.5 cm or larger (every year for 5 years). Dictated by: Mohan Bustamante M.D. on 11/04/2022 at 12:23 Approved by: Mohan Bustamante M.D. on 11/04/2022 at 12:24
== END ==
PROVIDERS: PCP Family Medicine; Referring Provider Family Medicine; Visit Provider Family Medicine
DX: E04.1 Nontoxic single thyroid nodule (principal); E03.9 Hypothyroidism, unspecified
CPT/HCPCS: 76536